=== PATIENT | male | born 1955 | race Hispanic/Latino ===

== ENCOUNTER 2018-08-04 21:35 | Emergency (ER) | payer OTHER ==
[~2018-08-04] VITALS: Ht 167.6 cm; Wt 94.3 kg
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
== END 2018-08-05 00:01 | disposition short-term general hospital (02) ==
LOC: ED 21:35
DX: S52.572A Other intraarticular fracture of lower end of left radius, initial encounter for closed fracture (principal); S42.001A Fracture of unspecified part of right clavicle, initial encounter for closed fracture; S32.049A Unspecified fracture of fourth lumbar vertebra, initial encounter for closed fracture; S82.102A Unspecified fracture of upper end of left tibia, initial encounter for closed fracture; S62.611A Displaced fracture of proximal phalanx of left index finger, initial encounter for closed fracture; S52.002A Unspecified fracture of upper end of left ulna, initial encounter for closed fracture; T20.00XA Burn of unspecified degree of head, face, and neck, unspecified site, initial encounter; T22.00XA Burn of unspecified degree of shoulder and upper limb, except wrist and hand, unspecified site, initial encounter; T22.052A Burn of unspecified degree of left shoulder, initial encounter; T21.02XA Burn of unspecified degree of abdominal wall, initial encounter; T24.001A Burn of unspecified degree of unspecified site of right lower limb, except ankle and foot, initial encounter; T24.012A Burn of unspecified degree of left thigh, initial encounter; T31.0 Burns involving less than 10% of body surface; V49.9XXA Car occupant (driver) (passenger) injured in unspecified traffic accident, initial encounter
CPT/HCPCS: 25605; 31500; 31720; 70450; 71045; 71260; 72125; 73090; 73110; 73552; 73590; 74177; 80053; 81001; 82150; 82375; 82550; 82803; 83605; 83690; 85025; 86850; 86900; 86901; 86920; 86927; 94002; 94799; 99285-25; G0480; J0330; Q9967